=== PATIENT | female | born 1945 | race African-American/Black ===

== ENCOUNTER 2018-08-20 17:26 | Inpatient (IN) | payer OTHER ==
[2018-08-20] MEDS ORDERED: LORazepam 2 MG/ML VIAL ONE (18:08)
[2018-08-20 18:38] LABS: Absolute Lymphocytes (CBC) 0.3 K/uL (0.7-4.9); Absolute Monocytes 0.6 K/uL (0.1-1.3); Absolute Neutrophil 7.7 K/uL (1.8-8.0); Basophils % 0.2 % (0-1.3); Eosinophils % 0.4 % (0-4.4); Hematocrit 32.2 % (36.0-45.0); Lymphocytes % 3.9 % (15.3-44.8); MPV 9.7 fL (7.6-11.3); Protime INR 1.06
--- NOTE | 2018-08-20 18:46 | RAD REPORT ---
EXAM DESCRIPTION: CT - Head Brain Wo Cont - 08/20/2018 6:16 pm CLINICAL HISTORY: HTN Headache, hypertension COMPARISON: No comparisons TECHNIQUE: All CT scans are performed using dose optimization technique as appropriate and may inclu de automated exposure control or mA/KV adjustment according to patient size. FINDINGS: No intracranial hemorrhage, hydrocephalus or extra-axial fluid collection.Mild generalized brain atrophy is present with mild periventricular and deep white matter chronic microvascular ische chuck changes.No areas of brain edema or evidence of midline shift. The paranasal sinuses and mastoids are clear. The calvarium is intact. IMPRESSION: No acute intracranial abnormality.
--- NOTE | 2018-08-20 18:46 | RAD REPORT ---
EXAM DESCRIPTION: RAD - Chest Single View - 08/20/2018 6:18 pm CLINICAL HISTORY: HTN Chest pain. COMPARISON: No comparisons FINDINGS: Portable technique limits examination quality. The lungs are grossly clear. The heart is upper limit of normal in size. No displaced fractures. IMPRESSION: No acute intrathoracic process suspected.
[2018-08-20 18:48] LABS: Barbiturates NEGATIVE (NEGATIVE); Benzodiazepines NEGATIVE (NEGATIVE); Cocaine NEGATIVE (NEGATIVE); METHAMPHETAM NEGATIVE (NEGATIVE); Methadone NEGATIVE (NEGATIVE); Opiates NEGATIVE (NEGATIVE); Phencyclidine NEGATIVE (NEGATIVE); THC Cannibis POSITIVE (NEGATIVE)
[2018-08-20 19:01] LABS: Albumin 3.2 g/dL (3.4-5.0); Bilirubin Direct 0.1 mg/dL (0-0.2); Bilirubin Total 0.5 mg/dL (0.2-1.0); Magnesium 1.8 mg/dL (1.8-2.4); Potassium 4.3 mmol/L (3.5-5.1); Protein, Total 7.8 g/dL (6.4-8.2); Troponin (Emerg Dept Use Only) 0.03 ng/mL (0.0-0.045); Urine White Blood Cell Casts OK
[2018-08-20 19:02] LABS: Blood Morphology Comment NOT SEEN (NOT SEEN); Platelet Estimate ADEQ
[2018-08-20 19:20] LABS: Urine Blood 2+ (NEG); Urine Glucose NEGATIVE (NEG); Urine Protein 1+ (NEG); Urine Specific Gravity 1.015 (1.005-1.030); Urine pH 6.5 (5.0-7.0)
[2018-08-20] MEDS ORDERED: ONDANSETRON 4 MG/2 ML VIAL IV PRN (20:42)
[2018-08-20] MEDS ORDERED: ALBUTEROL 2.5 MG/3 ML NEB SOL NEB PRN (20:42)
[2018-08-20] MEDS ORDERED: MORPHINE 2 MG/ML SYR IV PRN (20:42)
[2018-08-20] MEDS ORDERED: HYDRALAZINE HCL 20 MG/ML VIAL ONE (20:55)
[2018-08-20] MEDS ORDERED: AMLODIPINE 5 MG TAB ONE (20:56)
[2018-08-20 21:16] LABS: Urine Bacteria 20-50 /HPF (<20); Urine Culture Reflex Order REFLEXED; Urine Mucus 1+ /HPF (NONE SEEN)
--- NOTE | 2018-08-20 21:33 | ER ---
Nurse's Notes [facility] Name: Smita Luis Age: 73 yrs Sex: Female : 1945 Arrival Date: 08/20/2018 Time: 17:29 Bed 27 Private MD: Diagnosis: Altered mental status, unspecified;Urinary tract infection, site not specified;Alcohol dependence with withdrawal Presentation: 08/20 17:44 Presenting complaint: EMS states: pt with fever and upper respiratory illness for the tl3 last two weeks. Transition of care: patient was received from another setting of care (ambulatory primary care physician practice), Dr Spain. Onset of symptoms was August 05, 2018. Risk Assessment: Do you want to hurt yourself or someone else? Patient reports no desire to harm self or others. Initial Sepsis Screen: Does the patient meet any 2 criteria? No. Patient's initial sepsis screen is negative. Does the patient have a suspected source of infection? No. Patient's initial sepsis screen is negative. Care prior to arrival: IV initiated. 18 GA, in the left antecubital area. 17:44 Method Of Arrival: EMS: [facility] tl3 17:44 Acuity: LIZ 3 tl3 Triage Assessment: 17:50 General: Appears in no apparent distress. comfortable, slender, well groomed, well tl3 developed, well nourished, Behavior is calm, cooperative, appropriate for age. General: pt reports that she has been having cold s/s for the last two weeks has low grade temp of 100.4 now, complains of feeling tired. Given two doses of nitro en route to lower BP, no significant change in pressure noted. Pain: Denies pain. EENT: No signs and/or symptoms were reported regarding the EENT system. Neuro: Level of Consciousness is awake, alert, obeys commands, Oriented to person, place, time, situation, Appropriate for age. Cardiovascular: Patient's skin is warm and dry. Respiratory: Airway is patent Respiratory effort is even, unlabored, Respiratory pattern is regular, symmetrical. GI: No signs and/or symptoms were reported involving the gastrointestinal system. : No signs and/or symptoms were reported regarding the genitourinary system. Derm: No signs and/or symptoms reported regarding the dermatologic system. Musculoskeletal: No signs and/or symptoms reported regarding the musculoskeletal system. Historical: - Allergies: 17:50 PENICILLINS; tl3 - Home Meds: 17:50 alprazolam 0.25 mg Oral tab 1 tab twice daily for Anxiety [Active]; amlodipine 5 mg tab tl3 1 tab once daily [Active]; atorvastatin 20 mg oral tab 1 tab once daily [Active]; calcium carbonate 600 mg (1,500 mg) Oral tab daily [Active]; ginkgo biloba 60 mg oral cap daily [Active]; lisinopril 40 mg Oral tab 1 tab once daily [Active]; nicotine 7 mg/24 hr TD pt24 1 patch [Active]; sertraline 50 mg oral tab 1 tab once daily [Active]; tramadol 50 mg Oral tab 1 tab daily [Active]; - PMHx: 17:50 High Cholesterol; Hypertension; tl3 - PSHx: 17:50 PARTIAL HYSTERECTOMY; Appendectomy; tl3 - Immunization history:: Adult Immunizations up to date. - Social history:: Smoking status: unknown Patient uses alcohol. - Ebola Screening: : No symptoms or risks identified at this time. Screenin:54 Abuse screen: Denies threats or abuse. Nutritional screening: No deficits noted. tl3 Tuberculosis screening: No symptoms or risk factors identified. Fall Risk None identified. Assessment: 17:54 Reassessment: No changes from previously documented assessment. pt given brief, gown tl3 and wipes urine collected. 18:42 Reassessment: Patient and/or family updated on plan of care and expected duration. Pain tl3 level reassessed. Patient is alert, oriented x 3, equal unlabored respirations, skin warm/dry/pink. family at bedside, pt is acting confused trying to eat a sandwich that she does not have and chewing on the pulse ox. Family reports that pt does drink about a pint of [employer]ose a day. 20:14 Reassessment: Patient appears in no apparent distress at this time. No changes from tl3 previously documented assessment. Patient and/or family updated on plan of care and expected duration. Pain level reassessed. Patient is alert, oriented x 3, equal unlabored respirations, skin warm/dry/pink. pt ambulated to restroom with assistance, no complaints or needs at this time. 21:08 Reassessment: Patient appears in no apparent distress at this time. No changes from tl3 previously documented assessment. Patient and/or family updated on plan of care and expected duration. Pain level reassessed. Patient is alert, oriented x 3, equal unlabored respirations, skin warm/dry/pink. pt calm, family at bedside, pt remains somewhat altered, can answer questions but is still very spacey. 22:03 Reassessment: Patient appears in no apparent distress at this time. No changes from tl3 previously documented assessment. Patient and/or family updated on plan of care and expected duration. Pain level reassessed. Patient is alert, oriented x 3, equal unlabored respirations, skin warm/dry/pink. blood cultures and additional labs drawn and sent to lab. 22:56 Reassessment: Patient appears in no apparent distress at this time. No changes from tl3 previously documented assessment. Patient and/or family updated on plan of care and expected duration. Pain level reassessed. Patient is alert, oriented x 3, equal unlabored respirations, skin warm/dry/pink. pt got up out of bed and pulled out IV, folded all of the blankets and was trying to find her shoes to go home. Easily redirected back into the bed and IV restarted 20 G to right forearm. Vital Signs: 17:50 BP 178 / 90; Pulse 108; Resp 18; Temp 100.4(O); Pulse Ox 97% ; tl3 18:42 BP 177 / 94; Pulse 107; Resp 20; Pulse Ox 99% ; tl3 20:14 BP 185 / 97; Pulse 108; Resp 18; Pulse Ox 99% ; tl3 20:30 BP 173 / 93; Pulse 109; Resp 18; Pulse Ox 98% on R/A; ea 21:08 BP 166 / 91; Pulse 110; Resp 18; Temp 100.4; Pulse Ox 100% ; tl3 22:03 BP 151 / 77; Pulse 118; Resp 18; Pulse Ox 100% on R/A; tl3 ED Course: 17:29 Patient arrived in ED. iw 17:30 Sathish Summers PA is PHCP. cp 17:30 Roberto Burgess MD is Attending Physician. cp 17:44 Flaca Hopkins, JUAN is Primary Nurse. tl3 17:46 Triage completed. tl3 17:50 Arm band placed on right wrist. tl3 17:54 Patient has correct armband on for positive identification. Placed in gown. Bed in low tl3 position. Call light in reach. Side rails up X 1. Adult w/ patient. Pulse ox on. NIBP on. 17:54 No provider procedures requiring assistance completed. EKG done. Maintain EMS IV. tl3 Dressing intact. Good blood return noted. Site clean \T\ dry. 18:16 XRAY Chest (1 view) In Process Unspecified. EDMS 18:16 CT completed. Patient tolerated procedure well. Patient moved back from CT. nj 18:17 CT Head Brain wo Cont In Process Unspecified. EDMS 21:32 Tony Marrufo MD is Hospitalizing Provider. cp 22:56 Inserted saline lock: 20 gauge in right forearm, using aseptic technique. tl3 23:07 Patient admitted, IV remains in place. tl3 Administered Medications: 18:05 Drug: Ativan 0.5 mg Route: IVP; Site: right antecubital; tw2 18:46 Follow up: Response: No adverse reaction tl3 21:05 Drug: hydrALAZINE 5 mg Route: IV; Rate: bolus; Site: left antecubital; Delivery: tl3 Primary tubing; 22:05 Follow up: Response: Blood pressure is lowered tl3 22:05 Follow up: IV Status: Completed infusion; IV Intake: 5ml tl3 21:06 Drug: amLODIPine 5 mg Route: PO; tl3 22:05 Follow up: Response: Blood pressure is lowered tl3 22:04 Drug: Rocephin - (cefTRIAXone) 1 grams Route: IVPB; Infused Over: 5 mins; Site: right tl3 antecubital; Delivery: Existing IV tubing - EMS; 22:04 Follow up: IV Status: Completed infusion; IV Intake: 20ml tl3 22:05 Drug: NS 0.9% 250 ml Route: IV; Rate: calculated rate; Site: right antecubital; tl3 Delivery: Primary tubing; 22:20 Follow up: IV Status: Completed infusion; IV Intake: 250ml tl3 22:21 Drug: NS 0.9% 1000 ml Route: IV; Rate: 75 ml/hr; Site: right antecubital; Delivery: tl3 Primary tubing; 23:07 Follow up: IV Status: Infusion continued upon admission tl3 Intake: 22:04 IV: 20ml; Total: 20ml. tl3 22:05 IV: 5ml; Total: 25ml. tl3 22:20 IV: 250ml; Total: 275ml. tl3 Outcome: 21:33 Decision to Hospitalize by Provider. cp 22:56 Admitted to Tele accompanied by tech, via wheelchair, with chart, Report called to tl3 JUAN Altamirano 22:56 Condition: stable 22:56 Instructed on the need for admit. 23:17 Patient left the ED. tl3 Signatures: Dispatcher [employer] EDRebeca Russ RN RN Sathish Vilchis PA PA cp Nyasia Mendez RN RN tw2 Ramiro Stephenson Elena, RN RN ea Lowrey, Tammy, RN RN tl3 Corrections: (The following items were deleted from the chart) 17:54 17:50 General: pt reports that she has been having cold s/s for the last two weeks has tl3 low grade temp of 100.4 now, complains of feeling tired. tl3 18:45 18:42 Reassessment: Patient and/or family updated on plan of care and expected tl3 duration. Pain level reassessed. Patient is alert, oriented x 3, equal unlabored respirations, skin warm/dry/pink. family at bedside, pt is acting confused trying to eat a sandwich that she does not have and chewing on the pulse ox tl3
--- NOTE | 2018-08-20 21:34 | EDPHYS ---
Physician Documentation [facility] Name: Smita Luis Age: 73 yrs Sex: Female : 1945 Arrival Date: 08/20/2018 Time: 17:29 Bed 27 Private MD: ED Physician Roberto Burgess HPI: 08/20 18:00 This 73 yrs old Black Female presents to ER via EMS with complaints of elevated blood cp pressure. 18:00 The patient has elevated blood pressure and discovered this at a physician's office, cp and sent to the emergency department for evaluation. Onset: The symptoms/episode began/occurred gradually. Associated signs and symptoms: Pertinent positives: tremor. Severity of symptoms: in the emergency department the blood pressure is unchanged. Spoke with referring physician who requests patient be evaluated for elevated blood pressure and alcohol withdrawal. Historical: - Allergies: 17:50 PENICILLINS; tl3 - Home Meds: 17:50 alprazolam 0.25 mg Oral tab 1 tab twice daily for Anxiety [Active]; amlodipine 5 mg tab tl3 1 tab once daily [Active]; atorvastatin 20 mg oral tab 1 tab once daily [Active]; calcium carbonate 600 mg (1,500 mg) Oral tab daily [Active]; ginkgo biloba 60 mg oral cap daily [Active]; lisinopril 40 mg Oral tab 1 tab once daily [Active]; nicotine 7 mg/24 hr TD pt24 1 patch [Active]; sertraline 50 mg oral tab 1 tab once daily [Active]; tramadol 50 mg Oral tab 1 tab daily [Active]; - PMHx: 17:50 High Cholesterol; Hypertension; tl3 - PSHx: 17:50 PARTIAL HYSTERECTOMY; Appendectomy; tl3 - Immunization history:: Adult Immunizations up to date. - Social history:: Smoking status: unknown Patient uses alcohol. - Ebola Screening: : No symptoms or risks identified at this time. ROS: 18:05 Constitutional: Positive for fever, Negative for body aches, chills, poor PO intake. cp 18:05 Eyes: Negative for injury, pain, redness, and discharge. cp 18:05 ENT: Negative for drainage from ear(s), ear pain, sore throat, difficulty swallowing, difficulty handling secretions. 18:05 Cardiovascular: Negative for chest pain, edema, palpitations. 18:05 Respiratory: Positive for cough, Negative for shortness of breath, wheezing. 18:05 Abdomen/GI: Negative for abdominal pain, nausea, vomiting, and diarrhea, black/tarry stool, rectal bleeding. 18:05 Skin: Negative for cellulitis, rash. 18:05 Neuro: Positive for tremor, Negative for altered mental status, dizziness, weakness. 18:05 All other systems are negative. Exam: 18:04 ECG was reviewed by the Attending Physician. cp 18:10 Constitutional: The patient appears in no acute distress, alert, awake, cp non-diaphoretic, non-toxic, well developed, well nourished. 18:10 Head/Face: Normocephalic, atraumatic. cp 18:10 Eyes: Pupils equal round and reactive to light, extra-ocular motions intact. Lids and cp lashes normal. Conjunctiva and sclera are non-icteric and not injected. Cornea within normal limits. Periorbital areas with no swelling, redness, or edema. ENT: Nares patent. No nasal discharge, no septal abnormalities noted. Tympanic membranes are normal and external auditory canals are clear. Oropharynx with no redness, swelling, or masses, exudates, or evidence of obstruction, uvula midline. Mucous membranes moist. Neck: Trachea midline, no thyromegaly or masses palpated, and no cervical lymphadenopathy. Supple, full range of motion without nuchal rigidity, or vertebral point tenderness. No Meningismus. Chest/axilla: Normal chest wall appearance and motion. Nontender with no deformity. No lesions are appreciated. 18:10 Cardiovascular: Rate: tachycardic, Rhythm: regular, Edema: is not appreciated, JVD: is not appreciated. 18:10 Respiratory: the patient does not display signs of respiratory distress, Respirations: normal, no use of accessory muscles, no retractions, no splinting, no tachypnea, labored breathing, is not present, Breath sounds: are clear throughout, no decreased breath sounds, no stridor, no wheezing. 18:10 Abdomen/GI: Inspection: abdomen appears normal, Bowel sounds: active, all quadrants, Palpation: abdomen is soft and non-tender, in all quadrants, rebound tenderness, is not appreciated, voluntary guarding, is not appreciated, involuntary guarding, is not appreciated. 18:10 Back: pain, is absent, ROM is normal. 18:10 Skin: cellulitis, is not appreciated, no rash present. 18:10 Neuro: Orientation: to person, place \T\ time. Mentation: is normal, Cerebellar function: is grossly normal, Motor: moves all fours, strength is normal, Sensation: is normal, Abnormal movements: resting tremor, is located in the right hand and left hand. Vital Signs: 17:50 BP 178 / 90; Pulse 108; Resp 18; Temp 100.4(O); Pulse Ox 97% ; tl3 18:42 BP 177 / 94; Pulse 107; Resp 20; Pulse Ox 99% ; tl3 20:14 BP 185 / 97; Pulse 108; Resp 18; Pulse Ox 99% ; tl3 20:30 BP 173 / 93; Pulse 109; Resp 18; Pulse Ox 98% on R/A; ea 21:08 BP 166 / 91; Pulse 110; Resp 18; Temp 100.4; Pulse Ox 100% ; tl3 22:03 BP 151 / 77; Pulse 118; Resp 18; Pulse Ox 100% on R/A; tl3 MDM: 17:30 Patient medically screened. 21:30 Data reviewed: vital signs, nurses notes, lab test result(s), EKG, radiologic studies, cp CT scan, plain films. 21:30 Test interpretation: by ED physician or midlevel provider: ECG, plain radiologic cp studies. 21:31 Physician consultation: Tony Marrufo MD was called at 21:31, was contacted at 21:31, regarding admission, to the telemetry unit. patient's condition. 08/20 17:42 Order name: Basic Metabolic Panel; Complete Time: 20:14 cp 08/20 20:29 Interpretation: Normal except: CL 109; GLUC 116; BUN 36; CRE 2.17; GFR 27; CA 8.4. cp 08/20 17:42 Order name: CBC with Diff; Complete Time: 20:14 cp 08/20 20:15 Interpretation: Normal except: RBC 3.40; HGB 10.8; HCT 32.2; MARTIN% 88.5; LYM% 3.9; LYMA cp 0.3. 08/20 17:42 Order name: LFT's; Complete Time: 20:14 cp 08/20 20:15 Interpretation: Normal except: ALB 3.2; GLOB 4.6; A/G 0.7. cp 08/20 17:42 Order name: Magnesium; Complete Time: 20:14 cp 08/20 17:42 Order name: NT PRO-BNP; Complete Time: 20:14 cp 08/20 17:42 Order name: PT-INR; Complete Time: 18:47 cp 08/20 17:42 Order name: Troponin (emerg Dept Use Only); Complete Time: 20:14 cp 08/20 17:42 Order name: ETOH Level; Complete Time: 20:14 cp 08/20 17:42 Order name: UDS; Complete Time: 20:14 cp 08/20 18:03 Order name: Urine Microscopic Only; Complete Time: 21:24 cp 08/20 21:24 Interpretation: Normal except: UWBC 10-20; URBC 5-10; UBACT 20-50. cp 08/20 18:31 Order name: Urine Dipstick--Ancillary (enter results); Complete Time: 20:14 ag 08/20 20:16 Interpretation: Normal except: UBLD 2+; UPROT 1+; UESTR 1+. cp 08/20 18:41 Order name: CBC Smear Scan; Complete Time: 20:14 EDMS 08/20 20:48 Order name: CBC with Automated Diff EDMS 08/20 20:48 Order name: CBC with Automated Diff EDMS 08/20 17:42 Order name: XRAY Chest (1 view); Complete Time: 18:47 cp 08/20 18:03 Order name: CT Head Brain wo Cont; Complete Time: 18:47 cp 08/20 18:47 Interpretation: Report reviewed. cp 08/20 20:48 Order name: Comprehensive Metabolic Panel EDMS 08/20 20:48 Order name: Comprehensive Metabolic Panel EDMS 08/20 20:48 Order name: Protime (+INR) EDMS 08/20 20:48 Order name: Protime (+INR) EDMS 08/20 20:48 Order name: PTT, Activated Partial Thromb EDMS 08/20 20:48 Order name: PTT, Activated Partial Thromb EDMS 08/20 20:48 Order name: Troponin I EDMS 08/20 20:48 Order name: Troponin I EDMS 08/20 20:48 Order name: Troponin I EDMS 08/20 20:48 Order name: Chest Single View EDMS 08/20 20:48 Order name: Chest Single View EDMS 08/20 21:31 Order name: Blood Culture Adult (2) cp 08/20 21:31 Order name: Procalcitonin 08/20 22:42 Order name: Procalcitonin EDMI 08/20 17:42 Order name: EKG; Complete Time: 17:43 cp 08/20 17:42 Order name: Cardiac monitoring; Complete Time: 17:56 cp 08/20 17:42 Order name: EKG - Nurse/Tech; Complete Time: 17:56 cp 08/20 17:42 Order name: IV Saline Lock; Complete Time: 17:56 cp 08/20 17:42 Order name: Labs collected and sent; Complete Time: 17:56 cp 08/20 17:42 Order name: O2 Per Protocol; Complete Time: 17:56 cp 08/20 17:42 Order name: O2 Sat Monitoring; Complete Time: 17:56 cp 08/20 18:03 Order name: Urine Dipstick-Ancillary (obtain specimen); Complete Time: 18:50 cp 08/20 18:17 Order name: Labs - recollect needed; Complete Time: 18:50 ag 08/20 20:29 Order name: Vital Signs: please update temp; Complete Time: 21:06 cp 08/20 20:48 Order name: CONS Pharmacy Consult EDMI 08/20 20:48 Order name: Regular EDMS EC:04 Rate is 100 beats/min. Rhythm is regular. MD interval is normal. QRS interval is cp normal. QT interval is normal. Interpreted by me. Reviewed by me. Administered Medications: 18:05 Drug: Ativan 0.5 mg Route: IVP; Site: right antecubital; tw2 18:46 Follow up: Response: No adverse reaction tl3 21:05 Drug: hydrALAZINE 5 mg Route: IV; Rate: bolus; Site: left antecubital; Delivery: tl3 Primary tubing; 22:05 Follow up: Response: Blood pressure is lowered tl3 22:05 Follow up: IV Status: Completed infusion; IV Intake: 5ml tl3 21:06 Drug: amLODIPine 5 mg Route: PO; tl3 22:05 Follow up: Response: Blood pressure is lowered tl3 22:04 Drug: Rocephin - (cefTRIAXone) 1 grams Route: IVPB; Infused Over: 5 mins; Site: right tl3 antecubital; Delivery: Existing IV tubing - EMS; 22:04 Follow up: IV Status: Completed infusion; IV Intake: 20ml tl3 22:05 Drug: NS 0.9% 250 ml Route: IV; Rate: calculated rate; Site: right antecubital; tl3 Delivery: Primary tubing; 22:20 Follow up: IV Status: Completed infusion; IV Intake: 250ml tl3 22:21 Drug: NS 0.9% 1000 ml Route: IV; Rate: 75 ml/hr; Site: right antecubital; Delivery: tl3 Primary tubing; 23:07 Follow up: IV Status: Infusion continued upon admission tl3 Disposition: 08/20/18 21:33 Hospitalization ordered by Tony Marrufo for Inpatient Admission. Preliminary diagnosis are Altered mental status, unspecified, Urinary tract infection, site not specified, Alcohol dependence with withdrawal. - Bed requested for Telemetry/MedSurg (Inpatient). - Status is Inpatient Admission. tl3 - Condition is Stable. - Problem is new. - Symptoms have improved. UTI on Admission? Yes Addendum: 09/02/2018 07:40 Co-signature as Attending Physician, Roberto Burgess MD I agree with the assessment and k dr plan of care. Signatures: Dispatcher [employer] EDMS Roberto Burgess MD MD [facility] Gustavo White em1 Leeanna Gilman Corey, PA PA cp Nyasia Mendez RN RN tw2 Flaca Hopkins RN RN tl3 Corrections: (The following items were deleted from the chart) 08/20 20:29 20:15 Normal except: CL 109; GLUC 116; BUN 36; CRE 2.17; GFR 27. cp cp 22:45 21:33 Hospitalization Ordered by Tony Marrufo MD for Inpatient Admission. Preliminary em1 diagnosis is Altered mental status, unspecified; Urinary tract infection, site not specified; Alcohol dependence with withdrawal. Bed requested for Telemetry/MedSurg (Inpatient). Status is Inpatient Admission. Condition is Stable. Problem is new. Symptoms have improved. UTI on Admission? Yes. cp 23:17 22:45 08/20/2018 21:33 Hospitalization Ordered by Tony Marrufo MD for Inpatient tl3 Admission. Preliminary diagnosis is Altered mental status, unspecified; Urinary tract infection, site not specified; Alcohol dependence with withdrawal. Bed requested for Telemetry/MedSurg (Inpatient). Status is Inpatient Admission. Condition is Stable. Problem is new. Symptoms have improved. UTI on Admission? Yes. em1
[2018-08-20] MEDS ORDERED: NA CHLORIDE 0.9% 1,000 ML ONE (21:49)
[2018-08-20] MEDS ORDERED: CEFTRIAXONE/SWI 1gm 1 GM/10 ML SYR ONE (21:49)
[2018-08-20] MEDS: NA CHLORIDE 0.9% 1,000 ML IV SCH (23:49)
[2018-08-21] MEDS: METOPROLOL TARTRATE 5 MG/5 ML INJ IV SCH ×3 (02:20→02:38)
[2018-08-21 04:41] LABS: Absolute Lymphocytes (CBC) 1.1 K/uL (0.7-4.9); Absolute Monocytes 1.5 K/uL (0.1-1.3); Absolute Neutrophil 10.2 K/uL (1.8-8.0); Basophils % 0.3 % (0-1.3); Eosinophils % 0.4 % (0-4.4); Hematocrit 31.1 % (36.0-45.0); Lymphocytes % 8.4 % (15.3-44.8); MPV 9.7 fL (7.6-11.3); Monocytes % 11.3 % (3.3-12.3); RBC Red Blood Cell Count 3.26 M/uL (3.86-4.86)
[2018-08-21 04:43] LABS: Protime INR 1.08
[2018-08-21 04:55] LABS: Bilirubin Total 0.5 mg/dL (0.2-1.0); Potassium 3.8 mmol/L (3.5-5.1); Protein, Total 7.4 g/dL (6.4-8.2)
[2018-08-21] MEDS ORDERED: MORPHINE 4 MG/ML SYR IV PRN (08:04)
[2018-08-21] MEDS ORDERED: PNEUMOCOCCAL VACCINE 0.5 ML IMVAC ONE (09:00)
[2018-08-21] MEDS: NA CHLORIDE 0.9% 1,000 ML IV SCH ×2 (09:11→23:40)
--- NOTE | 2018-08-21 10:22 | RAD REPORT ---
EXAM DESCRIPTION: [place] Single View08/21/2018 6:32 am CLINICAL HISTORY: Shortness of breath COMPARISON: August 20 FINDINGS: Medial right base is mildly hazy. Remainder lungs appear clear. The heart is normal size IMPRESSION: Medial right base is mildly hazy which may be secondary to confluence of pulmonary vesse ls or mild infiltrate. PA and lateral chest series may be helpful for further evaluation
[2018-08-21] MEDS: ACETAMINOPHEN 500 MG TAB PO PRN (16:40)
--- NOTE | 2018-08-21 18:16 | P.PN ---
Subjective Date of Service: 08/21/18 Subjective: Tolerating diet, Ambulating, Improving, Doing well Review of Systems 10-point ROS is otherwise unremarkable Physical Examination - Vital Signs Temperature: 99.6 F Blood Pressure: 154/79 Pulse: 89 Respirations: 18 Pulse Ox (%): 98 - Physical Exam General: Alert, In no apparent distress HEENT: Atraumatic, PERRLA, EOMI Neck: Supple, JVD not distended Respiratory: Clear to auscultation bilaterally, Normal air movement Cardiovascular: Regular rate/rhythm, Normal S1 S2 Gastrointestinal: Normal bowel sounds, No tenderness Musculoskeletal: No tenderness Integumentary: No rashes Neurological: Normal speech, Normal tone, Normal affect Lymphatics: No axilla or inguinal lymphadenopathy - Studies Laboratory Data (last 24 hrs) 08/20/18 18:24: PT 12.5, INR 1.06 08/20/18 18:24: WBC 8.7, Hgb 10.8 L, Hct 32.2 L, Plt Count 208 08/20/18 18:24: Sodium 141, Potassium 4.3, BUN 36 H, Creatinine 2.17 H, Glucose 116 H, Magnesium 1.8, Total Bilirubin 0.5, AST 24, ALT 18, Alkaline Phosphatase 74 Medications List Reviewed: Yes Assessment And Plan - Current Problems (Diagnosis) (1) Toxic encephalopathy Current Visit: Yes Status: Acute Plan: Altered mental status most likely secondary to toxic encephalopathy secondary to UTI -the patient does have a history of alcohol abuse this might have component of alcohol encephalopathy as well. -today patient is alert and oriented x3 (2) UTI (urinary tract infection) Current Visit: Yes Status: Acute Plan: Patient's UA with UTI -currently on IV antibiotics -urine culture pending at this time Qualifiers: Urinary tract infection type: acute cystitis Hematuria presence: without hematuria Qualified Code(s): N30.00 - Acute cystitis without hematuria (3) Alcohol withdrawal Current Visit: Yes Status: Chronic Qualifiers: Complication of substance-induced condition: uncomplicated Qualified Code(s ): F10.230 - Alcohol dependence with withdrawal, uncomplicated Discharge Plan: Home Plan to discharge in: 48 Hours - Code Status/Comfort Care Code Status Assessed: Yes Critical Care: No
--- NOTE | 2018-08-21 21:15 | P.HP ---
Certification for Inpatient Patient admitted to: Observation With expected LOS: <2 Midnights Patient will require the following post-hospital care: None Practitioner: I am a practitioner with admitting privileges, knowledge of patient current condition, hospital course, and medical plan of care. Services: Services provided to patient in accordance with Admission requirements found in Title 42 Section 412.3 of the Code of Federal Regulations Patient History Date of Service: 08/20/18 Reason for admission: Altered mental status; UTI; alcohol withdrawal syndrome History of Present Illness: patient is a pleasant 73-year-old female who came to the hospital after not drinking for the last few days. She has not been acting like herself. She came into the hospital because it felt like she may be withdrawing. The family states she was confused and not making a lot of sense. Her workup revealed she had a urinary tract infection. She answered most of my questions fairly appropriately. Will continue with IV fluids and IV antibiotics. Nurses state that she is much better than when she came into the ER at 1st. We will continue with current plan of care at this time. Allergies Penicillins Allergy (Verified 08/20/18 23:49) Unknown Home Medications: ALPRAZolam [Xanax*] 1 tab PO DAILY PRN 08/21/18 Amlodipine [Norvasc*] 1 tab PO DAILY 08/21/18 Atorvastatin Calcium 1 tab PO BEDTIME 08/21/18 Calcium Carbonate 1 tab PO DAILY 08/21/18 Ginkgo Biloba [place] Extract [Ginkgo Biloba] 1 tab PO DAILY 08/21/18 Lisinopril 1 tab PO DAILY 08/21/18 Nicotine [Nicoderm*] 1 pat TOP DAILY 08/21/18 Sertraline [Zoloft*] 1 tab PO DAILY 08/21/18 Tramadol HCl [Ultram] 1 tab PO DAILY 08/21/18 - Past Medical/Surgical History Diabetic: No -: HTN -: High Cholesterol -: Alcohol Abuse -: Appendectomy -: Partial Hysterectomy - Family History Mother Medical History: Cancer Father Medical History: Hypertension Notes: high cholesterol - Social History Smoking Status: Current every day smoker Alcohol use: Yes Place of Residence: Home Review of Systems 10-point ROS is otherwise unremarkable Physical Examination - Vital Signs Temperature: 99.2 F Blood Pressure: 181/80 Pulse: 98 Respirations: 18 Pulse Ox (%): 100 - Physical Exam General: Alert, In no apparent distress, Oriented x3 HEENT: Atraumatic, PERRLA, Mucous membr. moist/pink, EOMI, Sclerae nonicteric Neck: Supple, 2+ carotid pulse no bruit, No LAD, Without JVD or thyroid abnormality Respiratory: Clear to auscultation bilaterally, Normal air movement Cardiovascular: Regular rate/rhythm, Normal S1 S2 Gastrointestinal: Normal bowel sounds, Soft and benign, Non-distended, No tenderness Musculoskeletal: No clubbing, No swelling, No tenderness Integumentary: No rashes Neurological: Normal gait, Normal speech, Normal strength at 5/5 x4 extr, Normal tone, Sensation intact, Cranial nerves 3-12 intact, Normal affect Lymphatics: No axilla or inguinal lymphadenopathy Assessment & Plan - Problems (Diagnosis) (1) Altered mental status Current Visit: Yes Status: Acute (2) UTI (urinary tract infection) Current Visit: Yes Status: Acute (3) Toxic encephalopathy Current Visit: Yes Status: Acute (4) Alcohol withdrawal Current Visit: Yes Status: Acute - Plan Plan: 1. IV hydration 2. IV antibiotics 3. Ativan p.r.n. 4. multivitamin 5. neurochecks 6. GI and DVT prophylaxis Discharge Plan: Home Plan to discharge in: 48 Hours - Advance Directives Does patient have a Living Will: No Does patient have a Durable POA for Healthcare: Yes - Code Status/Comfort Care Code Status Assessed: Yes Code Status: Full Code Critical Care: No Time Spent Managing PTS Care (In Minutes): 50
[2018-08-21] MEDS ORDERED: CEFTRIAXONE 1 GM/NS 50 ML 1 GM/50 ML BAG IV SCH (22:00)
[2018-08-21] MEDS: CEFTRIAXONE/SWI 1gm 1 GM/10 ML SYR IV SCH (22:27)
[2018-08-21] MEDS: ATORVASTATIN 20 MG TAB PO SCH (22:27)
[2018-08-22] MEDS: NA CHLORIDE 0.9% 1,000 ML IV SCH ×2 (02:04→13:00)
[2018-08-22] MEDS: LISINOPRIL 20 MG TAB PO SCH (08:51)
[2018-08-22] MEDS: TRAMADOL HCL 50 MG TAB PO SCH (08:53)
[2018-08-22] MEDS: CALCIUM CARBONATE 500 MG TAB PO SCH (08:53)
[2018-08-22] MEDS: AMLODIPINE 5 MG TAB PO SCH (08:53)
[2018-08-22] MEDS: SERTRALINE HCL 50 MG TAB PO SCH (08:53)
[2018-08-22] MEDS: ACETAMINOPHEN 500 MG TAB PO PRN ×2 (08:53→21:51)
--- NOTE | 2018-08-22 12:44 | P.PN ---
Subjective Date of Service: 08/22/18 Chief Complaint: Altered mental status; UTI; alcohol withdrawal syndrome Subjective: Tolerating diet, Ambulating, Improving, Working w/ PT, Doing well Review of Systems 10-point ROS is otherwise unremarkable Physical Examination - Vital Signs Temperature: 99.6 F Blood Pressure: 154/79 Pulse: 89 Respirations: 18 Pulse Ox (%): 98 - Physical Exam General: Alert, In no apparent distress HEENT: Atraumatic, PERRLA, EOMI Neck: Supple, JVD not distended Respiratory: Clear to auscultation bilaterally, Normal air movement Cardiovascular: Regular rate/rhythm, Normal S1 S2 Gastrointestinal: Normal bowel sounds, No tenderness Musculoskeletal: No tenderness Integumentary: No rashes Neurological: Normal speech, Normal tone, Normal affect Lymphatics: No axilla or inguinal lymphadenopathy - Studies Medications List Reviewed: Yes Assessment And Plan - Current Problems (Diagnosis) (1) Toxic encephalopathy Current Visit: Yes Status: Acute Plan: Altered mental status most likely secondary to toxic encephalopathy secondary to UTI -the patient does have a history of alcohol abuse this might have component of alcohol encephalopathy as well. -today patient is alert and oriented x3 (2) UTI (urinary tract infection) Current Visit: Yes Status: Acute Plan: Patient's UA with UTI -currently on IV antibiotics -urine culture positive for Gram negative rods Qualifiers: Urinary tract infection type: acute cystitis Hematuria presence: without hematuria Qualified Code(s): N30.00 - Acute cystitis without hematuria (3) Alcohol withdrawal Current Visit: Yes Status: Chronic Qualifiers: Complication of substance-induced condition: uncomplicated Qualified Code(s ): F10.230 - Alcohol dependence with withdrawal, uncomplicated Discharge Plan: Home Plan to discharge in: 48 Hours - Code Status/Comfort Care Code Status Assessed: Yes Critical Care: No
[2018-08-22] MEDS: ATORVASTATIN 20 MG TAB PO SCH (21:53)
[2018-08-22] MEDS: CEFTRIAXONE/SWI 1gm 1 GM/10 ML SYR IV SCH (21:53)
[2018-08-23 04:34] LABS: Absolute Lymphocytes (CBC) 1.2 K/uL (0.7-4.9); Absolute Neutrophil 7.9 K/uL (1.8-8.0); Basophils % 0.4 % (0-1.3); Eosinophils % 1.6 % (0-4.4); Hematocrit 29.1 % (36.0-45.0); Lymphocytes % 11.9 % (15.3-44.8); MPV 9.3 fL (7.6-11.3); Monocytes % 9.5 % (3.3-12.3); RBC Red Blood Cell Count 3.02 M/uL (3.86-4.86)
[2018-08-23 04:43] LABS: Albumin 2.7 g/dL (3.4-5.0); Bilirubin Total 0.4 mg/dL (0.2-1.0); Potassium 3.5 mmol/L (3.5-5.1); Protein, Total 7.2 g/dL (6.4-8.2)
[2018-08-23] MEDS: NA CHLORIDE 0.9% 1,000 ML IV SCH (07:52)
[2018-08-23] MEDS: LISINOPRIL 20 MG TAB PO SCH (10:36)
[2018-08-23] MEDS: SERTRALINE HCL 50 MG TAB PO SCH (10:37)
[2018-08-23] MEDS: TRAMADOL HCL 50 MG TAB PO SCH (10:37)
[2018-08-23] MEDS: AMLODIPINE 5 MG TAB PO SCH (10:37)
[2018-08-23] MEDS: CALCIUM CARBONATE 500 MG TAB PO SCH (10:38)
--- NOTE | 2018-08-23 12:54 | EKG ---
Test Date: 2018-08-20 Test Time: 17:50:22 Charger Tester: TERE MEASUREMENT RESULTS: Intervals: Rate: 100 MO: 136 QRSD: 86 QT: 322 QTc: 415 [place]: P: 83 MO: 136 QRS: 37 T: 69 INTERPRETIVE STATEMENTS: Normal sinus rhythm Normal ECG No previous ECG available for comparison Electronically Signed On 08-23-18 12:53:05 TONNAGE COMPILATION CLERK by Brandon Navarro
--- NOTE | 2018-08-23 16:28 | P.DS ---
Admission Date: 08/23/18 Discharge Date: 08/23/18 Disposition: ROUTINE DISCHARGE Discharge Condition: GOOD Reason for Admission: Altered mental status; UTI; alcohol withdrawal syndrome - Problems (1) Toxic encephalopathy Status: Acute (2) UTI (urinary tract infection) Status: Acute Qualifiers: Urinary tract infection type: acute cystitis Hematuria presence: without hematuria Qualified Code(s): N30.00 - Acute cystitis without hematuria (3) Alcohol withdrawal Status: Chronic Qualifiers: Complication of substance-induced condition: uncomplicated Qualified Code(s ): F10.230 - Alcohol dependence with withdrawal, uncomplicated Brief History of Present Illness: patient is a pleasant 73-year-old female who came to the hospital after not drinking for the last few days. She has not been acting like herself. She came into the hospital because it felt like she may be withdrawing. The family states she was confused and not making a lot of sense. Her workup revealed she had a urinary tract infection. She answered most of my questions fairly appropriately. Will continue with IV fluids and IV antibiotics. Nurses state that she is much better than when she came into the ER at 1st. We will continue with current plan of care at this time. Hospital Course: Overall during the hospital stay patient remained stable Patient was initially admitted to the hospital for toxic encephalopathy most likely secondary to UTI and alcohol withdrawal. For patient's UTI patient was started on IV Rocephin while here in the hospital. Urine culture was positive for E. coli that was lopez-sensitive. Patient was switched over to p.o. Augmentin. Patient's mentation did improve within 24 hr of antibiotics while here in the hospital. Patient remained alert and oriented x3 while here in the hospital as well. Patient did also noted to have of alcohol withdrawal initially in the 1st 24 hr after which she remained stable without any medications. Patient does was discharged home under stable condition after she worked with physical therapy and was able to tolerate her oral diet. Patient was asked to continue taking Augmentin 500 mg b.i.d. for total 14 days for her UTI Vital Signs/Physical Exam: Temp Pulse Resp BP Pulse Ox 98 F 86 18 184/97 H 98 08/23/18 12:00 08/23/18 12:00 08/23/18 12:00 08/23/18 12:00 08/23/18 12:00 General: Alert, In no apparent distress HEENT: Atraumatic, PERRLA, EOMI Neck: Supple, JVD not distended Respiratory: Clear to auscultation bilaterally, Normal air movement Cardiovascular: Regular rate/rhythm, Normal S1 S2 Gastrointestinal: Normal bowel sounds, No tenderness Musculoskeletal: No tenderness Integumentary: No rashes Neurological: Normal speech, Normal tone, Normal affect Lymphatics: No axilla or inguinal lymphadenopathy Laboratory Data at Discharge: WBC 10.3 K/uL (4.3-10.9) D 08/23/18 03:54 Hgb 9.6 g/dL (12.0-15.0) L 08/23/18 03:54 Hct 29.1 % (36.0-45.0) L 08/23/18 03:54 Plt Count 180 K/uL (152-406) 08/23/18 03:54 PT 12.7 SECONDS (9.5-12.5) H 08/21/18 04:08 INR 1.08 08/21/18 04:08 APTT 29.1 SECONDS (24.3-36.9) 08/21/18 04:08 Sodium 143 mmol/L (136-145) 08/23/18 03:54 Potassium 3.5 mmol/L (3.5-5.1) 08/23/18 03:54 BUN 21 mg/dL (7-18) H 08/23/18 03:54 Creatinine 1.89 mg/dL (0.55-1.3) H 08/23/18 03:54 Glucose 93 mg/dL (74-106) 08/23/18 03:54 Magnesium 1.8 mg/dL (1.8-2.4) 08/20/18 18:24 Total Bilirubin 0.4 mg/dL (0.2-1.0) 08/23/18 03:54 AST 12 U/L (15-37) L 08/23/18 03:54 ALT 14 U/L (12-78) 08/23/18 03:54 Alkaline Phosphatase 84 U/L (45-117) 08/23/18 03:54 Troponin I 0.03 ng/mL (0.0-0.045) 08/21/18 04:08 Home Medications: ALPRAZolam [Xanax*] 1 tab PO DAILY PRN 08/21/18 Amlodipine [Norvasc*] 1 tab PO DAILY 08/21/18 Atorvastatin Calcium 1 tab PO BEDTIME 08/21/18 Calcium Carbonate 1 tab PO DAILY 08/21/18 Ginkgo Biloba [place] Extract [Ginkgo Biloba] 1 tab PO DAILY 08/21/18 Lisinopril 1 tab PO DAILY 08/21/18 Nicotine [Nicoderm*] 1 pat TOP DAILY 08/21/18 Sertraline [Zoloft*] 1 tab PO DAILY 08/21/18 Tramadol HCl [Ultram] 1 tab PO DAILY 08/21/18 Amoxicillin/Potassium Clav [Augmentin 500-125 Tablet] 1 each PO BID #28 tablet 08/23/18 New Medications: Amoxicillin/Potassium Clav [Augmentin 500-125 Tablet] 1 each PO BID #28 tablet Patient Discharge Instructions: Please f.u with PCP in 1 to 2 days post discharge. new medication. Augmentin 500mg BID for 14 days Diet: Regular Activity: Ad roman Followup: Rika Pradhan MD [Primary Care Provider] - (call to schedule appointment)
== END 2018-08-23 14:31 | disposition home or self-care (01) | DRG 689 ==
LOC: ER 17:26 → ERHOLD 20:55 → 4TH 22:56 → OBSVTOIN 08-23 07:11
PROVIDERS: ADMIT Hospitalist; ATTEND Family Medicine
DX: N30.00 Acute cystitis without hematuria (principal); G92 Toxic encephalopathy; F10.239 Alcohol dependence with withdrawal, unspecified; B96.20 Unspecified Escherichia coli [E. coli] as the cause of diseases classified elsewhere; I10 Essential (primary) hypertension; E78.00 Pure hypercholesterolemia, unspecified; Z28.21 Immunization not carried out because of patient refusal
CPT/HCPCS: 36415; 70450; 71045; 80048; 80053; 80076; 80307; 80320; 81003; 81015; 83735; 83880; 84145; 84484; 85025; 85610; 85730; 87040; 87077; 87086; 87088; 87186; 93005; 96361; 96365; 96375; 97116; 97163; 97530; 99285; J0360; J0696; J7030